=== PATIENT | female | born 1975 | race African-American/Black ===

== ENCOUNTER 2021-11-28 19:35 | Emergency (ER) | payer BC ==
[~2021-11-28] VITALS: Ht 170.2 cm; Wt 103.4 kg
--- NOTE | 2021-11-28 19:45 | NUR ---
[id number].WEAKNESS, DIZZYNESS, TREMBLING AND UNABLE TO WALK. STARTED NICOTINE PATCH YESTERDAY. PT A/OX4. TOELRATING R/A WELL WITH NO SOB. CONNECTED PT TO POX AND MONITOR. SAFETY MEASURES IN PLACE.
[2021-11-28] MEDS ORDERED: ONDANSETRON 4 MG TAB.RAPDIS PO ONE (20:00)
[2021-11-28] MEDS ORDERED: MECLIZINE HCL 12.5 MG TABLET PO ONE (20:00)
[2021-11-28] MEDS ORDERED: MECLIZINE HCL 25 MG TABLET ONE (20:03)
[2021-11-28] MEDS ORDERED: ONDANSETRON 4 MG TAB.RAPDIS ONE (20:03)
--- NOTE | 2021-11-28 20:07 | NUR ---
[employer] [facility] AT PT'S BEDSIDE
--- NOTE | 2021-11-28 20:12 | NUR ---
EMT AT PT'S BEDSIDE FOR EKG
--- NOTE | 2021-11-28 20:24 | NUR ---
URINE COLLECTED AND SENT TO LAB
--- NOTE | 2021-11-28 20:35 | NUR ---
PT RETURNED TO ER EBED [address]
[2021-11-28 20:47] LABS: BASOPHILS # (AUTO) 0.1 K/uL (0.0-0.2); BASOPHILS % (AUTO) 0.8 % (0.0-2.0); EOSINOPHILS % (AUTO) 1.2 % (0.0-6.0); HEMATOCRIT 42 % (33-45); LYMPHOCYTES # (AUTO) 0.5 K/uL (0.8-4.8); MEAN CORPUSCULAR HGB CONC 34 g/dl (31.0-36.0); MEAN CORPUSCULAR VOLUME 106 fL (82-100); MONOCYTES # (AUTO) 0.9 K/uL (0.1-1.30); MONOCYTES % (AUTO) 13.2 % (2.0-12.0); NEUTROPHILS # (AUTO) 5.1 K/uL (1.8-8.9); NEUTROPHILS % (AUTO) 76.8 % (43.0-81.0); PLATELET COUNT (AUTO) 160 K/uL (150-450); RED BLOOD CELL COUNT(AUTO) 3.96 MIL/uL (4.0-5.2); WHITE BLOOD COUNT (AUTO) 6.6 K/uL (4.3-11.0)
[2021-11-28] MEDS ORDERED: ONDA4TAB11 PO (21:35)
[2021-11-28] MEDS ORDERED: MECL-159 PO (21:35)
[2021-11-28] MEDS ORDERED: DIAZ2TAB PO (21:35)
[2021-11-28 21:42] LABS: BILIRUBIN,URINE NEGATIVE (NEGATIVE); COLOR,URINE YELLOW (YELLOW); LEUKOCYTE ESTERASE ,URINE NEGATIVE (NEGATIVE); NITRITE, URINE NEGATIVE (NEGATIVE); PROTEIN,URINE NEGATIVE (NEGATIVE); UGLUCOSE NEGATIVE (NEGATIVE)
[2021-11-28 22:07] LABS: BACTERIA,URINE RARE /HPF (None Seen); MUCUS,URINE Few /LPF (None Seen); RBC,URINE 0-2 /HPF (0-2); WBC,URINE 0-2 /HPF (0-3)
[2021-11-28 22:20] LABS: EOSINOPHILS % (MANUAL) 1 % (0-4); LYMPHOCYTES % (MANUAL) 14 % (16-48); MONOCYTES % (MANUAL) 7 % (0-11.0); NEUTROPHILS % (MANUAL) 78 (42-76)
[2021-11-28 22:40] LABS: ALBUMIN 3.2 g/dL (3.4-5.0); BILIRUBIN,DIRECT 0.3 mg/dL (0.0-0.2); BILIRUBIN,TOTAL 0.7 mg/dL (0.2-1.0); CALCIUM, SERUM 8.8 mg/dL (8.5-10.1); CREATININE 0.7 mg/dL (0.6-1.3); TOTAL PROTEIN, SERUM 7.1 g/dL (6.4-8.2)
[2021-11-28] MEDS ORDERED: POTASSIUM CHLORIDE 20 MEQ TAB.PRT.SR PO ONE ×2 (22:53→23:00)
--- NOTE | 2021-11-28 23:09 | NUR ---
Patient discharged to home in stable condition. Written and verbal after care instructions given. Patient verbalizes understanding of instruction. D/C VIA WHEELCHAIR ASSIST. 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
[2021-11-28 23:20] VITALS: BP 161/74
== END 2021-11-28 23:20 | disposition home or self-care (01) ==
LOC: ER 19:38
DX: R42 Dizziness and giddiness (principal); Z60.2 Problems related to living alone
CPT/HCPCS: 99285; 70450; 93005; 85025; 80048; 80076; 84703; 81001; 36415; 85007; J8597; Q0162